=== PATIENT | female | born 1955 | race Caucasian/White ===

== ENCOUNTER → 2016-12-19 | Outpatient (CLI) | payer OTHER ==
[~2016-12-19] MED LIST: REGADENOSON 0.4 MG/5 ML SYR (LEXISCAN) IV ONE
[2016-12-19] MEDS: CATHETER FLUSH 10 ML SYR IV PRN ×2 (12:25→13:40)
[2016-12-19 13:38] VITALS: BP 127/64
--- NOTE | 2016-12-20 08:46 | STRESS TEST ---
DATE OF SERVICE: 12/19/2016 LEXISCAN MYOVIEW STRESS TEST REPORT REFERRING PHYSICIAN : Dr. Jeet Lentz. SUMMARY: The patient was injected with 10.94 mCi of technetium-99 Myoview and the resting images were obtained. Then, the patient received 0.4 mg of Lexiscan followed by 30.9 mCi of technetium-99 Myoview. Throughout the test, there were no EKG changes. The resting and stressed images were reviewed and compared in the short axis, horizontal long axis, and vertical long axis views. Review of the images showed good radiotracer uptake with typical female pattern. No significant ischemia or infarction. SSS is 1, SDS 1, TID value 1.06. On the gated images, the left ventricle appeared to be normal size with normal contractility. Calculated ejection fraction 65%. CONCLUSION: 1. The patient tolerated Lexiscan well. 2. No significant ischemia or infarction on SPECT images. 3. Normal left ventricular size with normal contractility. Calculated ejection fraction 65%. Job ID: [id number] DocumentID: [id number] Dictated Date: 12/19/2016 14:50:17 Barrel Bung Remover And Dumper Date: 12/19/2016 18:23:36 Dictated By: CHERRIE DE LA TORRE MD
== END ==
LOC: CARD 12:06
PROVIDERS: ATTEND Physician Assistant
DX: I44.2 Atrioventricular block, complete (principal); I10 Essential (primary) hypertension; C90.31 Solitary plasmacytoma in remission; E66.8 Other obesity; D47.2 Monoclonal gammopathy
CPT/HCPCS: 78452; 93017

== ENCOUNTER 2017-03-13 07:02 | Day surgery (SDC) | payer OTHER ==
[2017-03-13] VITALS (11 sets, daily range): BP systolic 103–151; BP diastolic 59–85
[~2017-03-13] VITALS: Ht 162.6 cm; Wt 85.3 kg
[~2017-03-13 07:02] MED LIST changes: +HEParin 1000 UNIT/ML (10ML VIAL) FOR BOLUS ONE; +NS (IVPB) 50 ML ONE; +NS IV 1000 ML 2,000 ML ONE; -REGADENOSON 0.4 MG/5 ML SYR (LEXISCAN) IV ONE; +ceFAZolin 1,000 MG (ANCEF) VIAL ONE
[2017-03-13] MEDS ORDERED: NS IV 1000 ML 1,000 ML IV ONE ×2 (07:04→08:04)
[2017-03-13] MEDS ORDERED: ceFAZolin 1,000 MG (ANCEF) VIAL IV ONE ×2 (07:15→08:15)
[2017-03-13] MEDS ORDERED: BACITRACIN INJECTION 50,000 UNIT, SODIUM CHLORIDE 0.9% IRRIGATIO 500 ML IR ONE ×4 (07:15→08:15)
[2017-03-13 07:28] LABS: MEAN PLATELET VOLUME 10.9 FL (7.4-10.4); RED BLOOD COUNT 4.1 10^6/uL (4.35-5.85); RED CELL DISTRIBUTION WIDTH 13.4 % (10.0-14.5); WHITE BLOOD COUNT 5.5 10^3/uL (4.3-11.0)
[2017-03-13 07:29] LABS: BILIRUBIN,URINE NEGATIVE (NEGATIVE); KETONES,URINE NEGATIVE (NEGATIVE); LEUKOCYTE ESTERASE ,URINE NEGATIVE (NEGATIVE); NITRITE,URINE NEGATIVE (NEGATIVE); PH,URINE 6.5 (5-9); PROTEIN,URINE NEGATIVE (NEGATIVE); UROBILINOGEN,URINE NORMAL (NORMAL)
[2017-03-13] MEDS ORDERED: LOSA1TAB70 PO (07:36)
[2017-03-13] MEDS ORDERED: ASPI-999 PO (07:36)
[2017-03-13] MEDS ORDERED: EZET10TA5 PO (07:36)
[2017-03-13 07:38] LABS: INR 0.9 (0.8-1.4); PROTHROMBIN TIME PATIENT 12.7 SEC (12.2-14.7)
--- NOTE | 2017-03-13 07:39 | Diagnostic Imaging Report ---
Indication: Preoperative evaluation Comparison: 10/13/2008 Findings: Upright portable view of the chest is obtained. Heart size is upper limits of normal unchanged. Pacer device is stable. There is no pneumothorax, mediastinal widening or pleural fluid. Lungs are clear. Impression: No evidence of an acute cardiopulmonary abnormality. Dictated by: Dictated on workstation # [id number]
[2017-03-13 07:47] LABS: ALANINE AMINOTRANSFERASE 37 U/L (0-55); ALBUMIN 4.2 GM/DL (3.2-4.5); ANION GAP 12 MMOL/L (5-14); ASPARTATE AMINO TRANSFERASE 35 U/L (5-34); BILIRUBIN,TOTAL 0.5 MG/DL (0.1-1.0); BLOOD UREA NITROGEN 12 MG/DL (7-18); BUN/CREATININE RATIO 14; CALCIUM 9.8 MG/DL (8.5-10.1); CARBON DIOXIDE 24 MMOL/L (21-32); CHLORIDE 104 MMOL/L (98-107); CHOLESTEROL 203 MG/DL (< 200); CREATININE SERUM 0.87 MG/DL (0.60-1.30); DIRECT LDL 108 MG/DL (1-129); GFR ESTIMATED > 60; GLUCOSE 132 MG/DL (70-105); POTASSIUM 3.4 MMOL/L (3.6-5.0); SODIUM 140 MMOL/L (135-145); TOTAL PROTEIN 7.2 GM/DL (6.4-8.2); TRIGLYCERIDES 151 MG/DL (<150); VLDL CHOLESTEROL 30 MG/DL (5-40)
[2017-03-13] MEDS ORDERED: MIDAZOLAM 5 MG/5 ML (VERSED) VIAL ONE (09:09)
[2017-03-13] MEDS ORDERED: fentaNYL INJECTION 100 MCG/2 ML AMP ONE (09:09)
--- NOTE | 2017-03-13 09:54 | Cardiac Procedure Note-CS/ASA ---
Pre-Procedure Note Pre-Op Procedure Note H&P Reviewed The H&P was reviewed, patient examined and no changes noted. Date H&P Reviewed: Mar 13, 2017 Time H&P Reviewed: 09:53 Conscious Sedation Pre-Proced Time Reviewed: 09:53 ASA Class: 3 Airway Mallampati Classification: (k[place] de[place] wint[place] appropriate class) I. II. III, IV Lungs Heart ASA score ASA 1: a normal healthy patient ASA 2: a patient with a mild systemic disease (mid diabetes, controlled hypertension, obesity x ASA 3: a patient with a severe systemic disease that limits activity (angina , COPD, prior Myocardial infarction) ASA 4: a patient with an incapacitating disease that is a constant threat to life (CHF, renal failure) ASA 5: a moribund patient not expected to survive 24 hrs. (ruptured aneurysm) ASA 6: a declared brain patient whose organs are being harvested. For emergent operations, add the letter E after the classification Grade 3 Sedation Plan: Analgesia, Amnesia, Plan communicated to team members, Discussed options with patient/fam, Discussed risks with patient/fam Note The patient is an appropriate candidate to undergo the planned procedure, sedation, and anesthesia. The patient immediately re-assessed prior to indication. CHERRIE DE LA TORRE MD Mar 13, 2017 09:54
[2017-03-13] MEDS ORDERED: NEO/POLY/BAC (NEOSPORIN) OINT 15 GM TUBE ONE (10:37)
[2017-03-13] MEDS ORDERED: NS IV 1000 ML 1,000 ML IV SCH (10:47)
[2017-03-13] MEDS ORDERED: CEFU500T63 PO (10:51)
--- NOTE | 2017-03-13 10:56 | ICD Generator Change ---
ICD Generator Change Physician (s)/Lime Sludge Kiln Operator (s) Physician CHERRIE DE LA TORRE MD Pre-Procedure Diagnosis Pre-Procedure Diagnosis: END OF BATTERY LIFE Post-Procedure Note Procedure Start Date: Mar 13, 2017 Procedure Start Time: 10:52 Name of Procedure: dual chamber pacemaker generator change Findings/Procedure Note After explaining the procedure to the patient all pros and cons were explained patient was placed on a Laboratory chest area was prepped in a sterile fashion. Local anesthesia applied and skin incision was made. The device was removed and patient is known to have a right ventricular lead that has a high impedance and high threshold. Patient is not requiring any pacing the ventricular lead. After removing the pacemaker generator and tested both leads the atrial lead has good sensing and capture activity, the ventricular lead has good sensing but high threshold for ventricular pacing. Due to the fact that patient does not require any pacing from the ventricular lead I decided to leave it and attached and new device with the longer battery duration. I used a Meldium device ADAPTA DR LONGEVITY with serial number [id number], it was placed in the pocket, tested again good sensing and capture activity. Skin pocket was closed on 2 layers with no complications. Irrigation with antibiotic solution was done. Conclusion Successful dual-chamber pacemaker generator replacement with no complications Anesthesia Type: Conscious Sedation Estimated blood loss (mL): 10 ml Contrast Amount: 0 ml Post-Procedure Diagnosis Post-operative diagnosis: sick sinus syndrome Hypertension Hyperlipidemia CHERRIE DE LA TORRE MD Mar 13, 2017 10:56
[2017-03-13] MEDS ORDERED: PATIENT MAY USE OWN MEDS, ALL PO SCH (11:00)
[2017-03-13] MEDS ORDERED: ceFAZolin INJECTION 1,000 MG in NS (IVPB) 50 ML IV SCH (14:00)
== END 2017-03-13 15:45 | disposition home or self-care (01) ==
LOC: CATH 07:02 → ICU 11:06 → CATH 15:45
PROVIDERS: ATTEND Internal Medicine Cardiovascular Disease
DX: Z45.010 Encounter for checking and testing of cardiac pacemaker pulse generator [battery] (principal); I10 Essential (primary) hypertension; E78.5 Hyperlipidemia, unspecified; I65.23 Occlusion and stenosis of bilateral carotid arteries; D47.2 Monoclonal gammopathy; C90.31 Solitary plasmacytoma in remission; E66.9 Obesity, unspecified; Z68.32 Body mass index [BMI] 32.0-32.9, adult; Z79.82 Long term (current) use of aspirin; Z92.3 Personal history of irradiation
CPT/HCPCS: 33228; 36415; 71010; 80053; 80061; 81000; 85027; 85610; 85730; 87081; 93005

== ENCOUNTER → 2017-04-30 | Outpatient (CLI) | payer OTHER ==
[~2017-04-30] MED LIST changes: +ASPI-999 PO; +CEFU500T63 PO; +EZET10TA5 PO; -HEParin 1000 UNIT/ML (10ML VIAL) FOR BOLUS ONE; +LOSA1TAB23 PO; -NS (IVPB) 50 ML ONE; -NS IV 1000 ML 2,000 ML ONE; -ceFAZolin 1,000 MG (ANCEF) VIAL ONE
--- NOTE | 2017-04-30 17:09 | Diagnostic Imaging Report ---
Bilateral screening mammogram 2D views with tomosynthesis The current study was also evaluated with a Computer Aided Detection (CAD) system. Indication: Screening. No current complaints stated on the questionnaire. COMPARISON: 04/27/2016. Findings: The breasts are composed of scattered fibroglandular densities. There are occasional benign-appearing calcifications. Pacemaker on the left side is seen. Allowing for technique and positional differences, no suspicious change is seen. IMPRESSION: No significant change. ACR BI-RADS Category 2: Benign findings. Result letter will be mailed to the patient. Note: At least 10% of breast cancer is not imaged by mammography. Dictated by: Dictated on workstation # [id number]
== END ==
LOC: RAD 10:12
PROVIDERS: ATTEND Family Medicine
DX: Z12.31 Encounter for screening mammogram for malignant neoplasm of breast (principal)
CPT/HCPCS: 77067

== ENCOUNTER → 2018-06-23 | Outpatient (CLI) | payer OTHER ==
--- NOTE | 2018-06-23 13:03 | Diagnostic Imaging Report ---
Indication: Routine screening. Comparison is made with prior mammogram from 04/30/2017 and 04/27/2016. 2-D and 3-D bilateral screening mammography was performed with CAD. Scattered fibroglandular densities are identified bilaterally. The parenchymal pattern is stable. No dominant mass or malignant-appearing microcalcifications are seen. Left axilla contains a pacemaker battery pack. Impression: BI-RADS category 2 No mammographic features suspicious for malignancy are identified. ACR BI-RADS Category 2: Benign findings. Result letter will be mailed to the patient. Note: At least 10% of breast cancer is not imaged by mammography. Dictated by: Dictated on workstation # [id number]
== END ==
LOC: RAD 10:40
PROVIDERS: ATTEND Family Medicine
DX: Z12.31 Encounter for screening mammogram for malignant neoplasm of breast (principal)
CPT/HCPCS: 77067

== ENCOUNTER → 2019-04-06 | Outpatient (CLI) | payer OTHER | LOC: CARD 10:08 | PROVIDERS: ATTEND Internal Medicine Cardiovascular Disease | DX: Z53.9 Procedure and treatment not carried out, unspecified reason (principal); I44.2 Atrioventricular block, complete; I65.29 Occlusion and stenosis of unspecified carotid artery; I10 Essential (primary) hypertension; E78.2 Mixed hyperlipidemia; I49.1 Atrial premature depolarization | CPT/HCPCS: 93306 ==

== ENCOUNTER 2019-06-23 10:00 | Outpatient (CLI) | payer OTHER ==
[~2019-06-23] VITALS: Ht 162.6 cm; Wt 84.5 kg
[~2019-06-23 10:00] MED LIST changes: +EZET10TA17 PO; -EZET10TA5 PO; +METF-397 PO
== END 2019-06-23 10:35 | disposition home or self-care (01) ==
LOC: PREOP 10:00
PROVIDERS: ATTEND Internal Medicine
DX: Z01.818 Encounter for other preprocedural examination (principal)

== ENCOUNTER 2019-06-26 07:12 | Day surgery (SDC) | payer OTHER ==
--- NOTE | 2019-06-15 08:18 | HISTORY AND PHYSICAL ---
DATE OF SERVICE: COLONOSCOPY HISTORY AND PHYSICAL HISTORY OF PRESENT ILLNESS: The patient is a 63-year-old white female referred by Dr. Lentz for screening colonoscopy. She had one other colonoscopy per Dr. Shah in [place] in 2008 that was reportedly unremarkable. She is not aware of any family history of colon cancer. She reports no bowel habit change. Denies abdominal pain, bright red blood per rectum or melena. PAST MEDICAL HISTORY: Significant for hypertension and recently diagnosed type 2 diabetes mellitus in 03/2009, at which time, metformin 500 mg b.i.d. was initiated. She takes a baby aspirin daily and is on losartan-hydrochlorothiazide 100/25 mg 1 daily. 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 In 2004, she had 5 weeks of radiation therapy and has had no recurrence. She also had a past history of pacemaker placement for complete heart block in 1999, negative workup felt to be idiopathic. FAMILY HISTORY: Maternal grandmother was diagnosed with breast cancer that metastasized to the bone postmenopausal. Father at age 51 secondary to an NC. Mother at the age of 96, had a history of COPD and hyperlipidemia. SOCIAL HISTORY: She is , works as a part-time nurse with no past smoking history and no significant drinking history. REVIEW OF SYSTEMS: CONSTITUTIONAL: She denies night sweats, chills, fever or change in weight. CARDIOVASCULAR: She denies chest pain, orthopnea, PND, pedal edema or dyspnea on exertion. PULMONARY: She denies cough or wheezing problems. GASTROINTESTINAL: As noted in the HPI. PHYSICAL EXAMINATION: GENERAL: Reveals a pleasant white female in no acute distress. VITAL SIGNS: Weight 186.6 pounds, blood pressure 121/71. HEENT: Unremarkable. Oral cavity clear. Mallampati 1 oral configuration. NECK: Revealed no JVD, adenopathy or bruits. CHEST: Clear to auscultation. CARDIOVASCULAR: Reveals a regular rate and rhythm without murmur, S3 or S4. ABDOMEN: Soft, supple without mass, organomegaly or tenderness. EXTREMITIES: Reveal no cyanosis, clubbing or edema. ASSESSMENT AND PLAN: The patient is set up for screening colonoscopy on 06/26/2019. Prep instructions with the Suprep kit were given and questions were answered. I thank you for the referral of this pleasant lady. Job ID: [id number] DocumentID: [id number] Dictated Date: 06/10/2019 17:13:35 Survey Instrument Operator Date: 06/10/2019 17:40:02 Dictated By: WARREN MILIAN MD
[~2019-06-26] VITALS: Ht 162.6 cm; Wt 84.5 kg
[2019-06-26] VITALS (12 sets, daily range): BP systolic 104–156; BP diastolic 56–85
[~2019-06-26 07:12] MED LIST changes: +D5 LR IV SOLUTION 1,000 ML IV ONE
[2019-06-26] MEDS ORDERED: D5 LR IV SOLUTION 1,000 ML IV STA (07:14)
[2019-06-26] MEDS ORDERED: MIDAZOLAM 5 MG/5 ML (VERSED) VIAL IV PRN (07:15)
[2019-06-26] MEDS ORDERED: fentaNYL INJECTION 100 MCG/2 ML AMP IVP ONE (07:15)
[2019-06-26] MEDS ORDERED: LIDOCAINE JELLY 2% 6 ML SYRINGE MM PRN (07:15)
[2019-06-26] MEDS ORDERED: LIDOCAINE JELLY 2% 6 ML SYRINGE ONE (07:58)
[2019-06-26] MEDS ORDERED: fentaNYL INJECTION 100 MCG/2 ML AMP ONE (07:58)
[2019-06-26] MEDS ORDERED: MIDAZOLAM 5 MG/5 ML (VERSED) VIAL ONE (07:59)
--- NOTE | 2019-06-26 09:49 | Pre-Op Note & Conscious Sedat ---
Pre-Operative Progress Note H&P Reviewed The H&P was reviewed, patient examined and no changes noted. Date H&P Reviewed: Jun 26, 2019 Time H&P Reviewed: 07:40 Conscious Sedation Pre-Proced ASA Score 2 For ASA 3 and 4: Consider anesthesia and medical clearance. Also, for patients with a history of failed moderate sedation consider anesthesia. Airway Lungs Heart ASA score ASA 1: a normal healthy patient ASA 2: a patient with a mild systemic disease (mid diabetes, controlled hypertension, obesity ASA 3: a patient with a severe systemic disease that limits activity (angina, COPD, prior Myocardial infarction) ASA 4: a patient with an incapacitating disease that is a constant threat to life (CHF, renal failure) ASA 5: a moribund patient not expected to survive 24 hrs. (ruptured aneurysm) ASA 6: a declared brain- patient whose organs are being harvested. For emergent operations, add the letter E after the classification Mallampati Classification Grade 2 Sedation Plan Analgesia, Amnesia, Plan communicated to team members, Discussed options with patient/fam, Discussed risks with patient/fam The patient is an appropriate candidate to undergo the planned procedure, sedation, and anesthesia. The patient immediately re-assessed prior to indication. WARREN MILIAN MD Jun 26, 2019 09:49
--- NOTE | 2019-06-26 16:21 | OPERATIVE REPORT ---
DATE OF SERVICE: COLONOSCOPY SUMMARY The patient was referred by Dr. Lentz for screening colonoscopy. DESCRIPTION OF PROCEDURE: The patient was placed in the left lateral decubitus position. Prior to undergoing colonoscopy, digital rectal evaluation was performed. Anal sphincter tone was normal. Perianal reflexes intact. There is some redundant perianal skin folds, likely secondary to a previous related hemorrhoids, but no evidence for active external hemorrhoids were noted. No significant internal hemorrhoids were noted. No abnormalities were noted on digital inspection of anal canal or distal rectal vault. The colonoscope was then inserted into the rectum and under direct visualization advanced to cecum. The cecum was identified by identification of the ileocecal valve and cecal strap. Photographic documentation was obtained. Careful inspection was made as colonoscope withdrawn. Quality of prep was excellent. The patient tolerated the procedure well. FINDINGS: There was no evidence for internal or external hemorrhoids and the rectum was unremarkable. Two very small sigmoid diverticulum were present. No evidence for diverticulitis was noted. No other sigmoid colonic abnormalities were appreciated. The descending colon, splenic flexure, transverse colon and hepatic flexure were unremarkable. Present in the proximal ascending colon was a diminutive polyp, was biopsied and ablated with no subsequent blood loss and measured 2 to 3 mm in size. The remainder of the ascending colon and cecum was unremarkable. ASSESSMENT: Diminutive hyperplastic appearing polyp was removed from the proximal ascending colon. No other evidence for neoplasia was identified. Two small sigmoid diverticulum were present. No evidence for diverticulitis. No other significant abnormalities were noted on today's procedure. I would advocate consideration for repeat screening colonoscopy in 10 years. Job ID: [id number] DocumentID: [id number] Dictated Date: 06/26/2019 10:03:18 Rotary Driller Prospecting Date: 06/26/2019 16:20:32 Dictated By: WARREN MILIAN MD
== END 2019-06-26 09:55 | disposition home or self-care (01) ==
LOC: ENDO 07:12
PROVIDERS: ATTEND Internal Medicine
DX: Z12.11 Encounter for screening for malignant neoplasm of colon (principal); K63.5 Polyp of colon; K57.30 Diverticulosis of large intestine without perforation or abscess without bleeding; E11.9 Type 2 diabetes mellitus without complications; I10 Essential (primary) hypertension; Z79.84 Long term (current) use of oral hypoglycemic drugs; Z79.82 Long term (current) use of aspirin; Z79.899 Other long term (current) drug therapy; Z95.0 Presence of cardiac pacemaker; Z80.3 Family history of malignant neoplasm of breast

== ENCOUNTER → 2019-09-14 | Outpatient (CLI) | payer OTHER ==
[~2019-09-14] MED LIST changes: -D5 LR IV SOLUTION 1,000 ML IV ONE
--- NOTE | 2019-09-15 21:03 | Diagnostic Imaging Report ---
EXAM: Digital mammogram bilateral screening COMPARISON: This study was compared to the prior exams of 06/23/2018, 04/30/2017 and 04/27/2016. There are no current complaints. The current study was also evaluated with a Computer Aided Detection (CAD) system. FINDINGS: The fibroglandular tissue in both breasts is heterogeneously dense. This does limit the sensitivity of this exam. Overall, there does not appear to have been any significant change when compared to the prior study. No primary or secondary sign of malignancy is noted. The left-sided pacemaker seen previously is again evident. IMPRESSION: There is no radiographic evidence for malignancy. ACR category 1. ACR BI-RADS Category 1: Negative. Result letter will be mailed to the patient. Note: At least 10% of breast cancer is not imaged by mammography. Dictated on workstation # [id number]
== END ==
LOC: RAD 10:54
PROVIDERS: ATTEND Family Medicine
DX: Z12.31 Encounter for screening mammogram for malignant neoplasm of breast (principal)
CPT/HCPCS: 77063; 77067

== ENCOUNTER → 2020-07-11 | Outpatient (CLI) | payer OTHER | LOC: CARD 09:51 | PROVIDERS: ATTEND Physician Assistant | DX: I49.5 Sick sinus syndrome (principal); I51.7 Cardiomegaly; I34.0 Nonrheumatic mitral (valve) insufficiency | CPT/HCPCS: 93306 ==

== ENCOUNTER → 2020-09-15 | Outpatient (CLI) | payer OTHER ==
--- NOTE | 2020-09-15 10:36 | Diagnostic Imaging Report ---
INDICATION: Routine screening. Comparison is made to prior mammogram 09/14/2019. 2-D and 3-D bilateral screening mammography was performed with CAD. Both breasts remain heterogeneously dense, limiting the sensitivity of mammography. The parenchymal pattern is stable. No mass or malignant appearing microcalcifications are identified. There is pacemaker battery pack left axilla. Right axilla is unremarkable. IMPRESSION: BI-RADS Category 1 No mammographic features suspicious for malignancy are identified. ACR BI-RADS Category 1: Negative. Result letter will be mailed to the patient. Note: At least 10% of breast cancer is not imaged by mammography. Dictated by: Dictated on workstation # [id number]
== END ==
LOC: RAD 10:05
PROVIDERS: ATTEND Family Medicine
DX: Z12.31 Encounter for screening mammogram for malignant neoplasm of breast (principal)
CPT/HCPCS: 77063; 77067

== ENCOUNTER → 2021-08-15 | Outpatient (CLI) | payer MEDICARE, OTHER | LOC: CARD 10:30 | PROVIDERS: ATTEND Physician Assistant | DX: I10 Essential (primary) hypertension (principal) | CPT/HCPCS: 93306 ==

== ENCOUNTER → 2021-10-02 | Outpatient (CLI) | payer MEDICARE, OTHER ==
--- NOTE | 2021-10-02 15:58 | Diagnostic Imaging Report ---
INDICATION: Routine screening. Comparison is made with prior mammogram from 09/15/2020. 2-D and 3-D bilateral screening mammography was performed with CAD. Both breasts are heterogeneously dense, limiting the sensitivity of mammography. The parenchymal pattern is stable. No dominant mass or malignant-appearing microcalcifications are seen. There are benign calcifications present. Pacemaker battery pack is again noted in the left axilla. IMPRESSION: No mammographic features suspicious for malignancy are identified. ACR BI-RADS Category 2: Benign findings. Result letter will be mailed to the patient. Note: At least 10% of breast cancer is not imaged by mammography. BI-RADS Category 2 Dictated by: Dictated on workstation # [id number]
== END ==
LOC: RAD 10:30
PROVIDERS: ATTEND Family Medicine
DX: Z12.31 Encounter for screening mammogram for malignant neoplasm of breast (principal)
CPT/HCPCS: 77063; 77067

== ENCOUNTER → 2021-10-18 | Outpatient (CLI) | payer MEDICARE, OTHER ==
[~2021-10-18] VITALS: Ht 162 cm; Wt 81.0 kg
[~2021-10-18] MED LIST changes: +REGADENOSON 0.4 MG/5 ML SYR (LEXISCAN) IV ONE
[2021-10-18] MEDS: CATHETER FLUSH 10 ML SYR IVP PRN ×2 (08:16→09:46)
[2021-10-18 09:35] VITALS: BP 172/87
--- NOTE | 2021-10-18 14:18 | Cardiology Stress Test Report ---
Stress Test Report Date of Procedure/Referring: Date of Procedure: Oct 18, 2021 PCP Jeet Lentz DO Admitting Physician Admitting Physician: Attending Physician: Merlyn Santamaria Indications: HTN Baseline Heart Rate: 82 Baseline Blood Pressure: Blood Pressure Systolic: 172 Blood Pressure Diastolic: 87 Baseline Vitals Vital Signs Date Time Temp Pulse Resp B/P (MAP) Pulse Ox O2 Delivery O2 Flow Rate FiO2 10/18/21 09:35 78 172/87 (115) 96 Baseline EKG: Baseline EKG: RBBB Summary After explaining the procedure to the patient, she signed a consent and then brought to the stress nuclear laboratory. Patient received 0.4 mg Lexiscan for stress test, ECG, heart rate and blood pressure were monitored continuously. Resting and stress dose of radio tracer were injected, imaging was acquired and reviewed in short axis, horizontal long axis and vertical long axis views. TID: 1.04 SSS: 4 SDS: 3 EF: 72 1. Patient tolerated Lexiscan well 2. Baseline sinus rhythm with right bundle branch block, frequent PVCs and transient ventricular bigeminy noted during test 3. Baseline hypertension persisted during test 4. No significant ischemia or infarction on SPECT images 5. Normal left ventricular size, ejection fraction 72% Copy Copies To 1: JEET LENTZ BASHAR J MD Oct 18, 2021 14:17
== END ==
LOC: CARD 08:30
PROVIDERS: ATTEND Physician Assistant
DX: E78.2 Mixed hyperlipidemia (principal); I10 Essential (primary) hypertension
CPT/HCPCS: 78452; 93017; A9502

== ENCOUNTER → 2022-10-09 | Outpatient (CLI) | payer MEDICARE, OTHER ==
[~2022-10-09] MED LIST changes: -REGADENOSON 0.4 MG/5 ML SYR (LEXISCAN) IV ONE
--- NOTE | 2022-10-10 10:20 | Diagnostic Imaging Report ---
INDICATION: Routine screening. COMPARISON: 10/02/2021 and 09/15/2020. TECHNIQUE: 2D and 3D bilateral screening mammography was performed with CAD. FINDINGS: Both breasts are heterogeneously dense, limiting the sensitivity of mammography. The overall parenchymal pattern is stable. No mass or malignant-appearing microcalcifications are seen. There are scattered benign calcifications. A pacemaker battery pack overlies the left axilla. IMPRESSION: No mammographic features suspicious for malignancy are identified. ACR BI-RADS Category 2: Benign findings. Result letter will be mailed to the patient. Note: At least 10% of breast cancer is not imaged by mammography. Dictated by: Dictated on workstation # [id number]
== END ==
LOC: RAD 10:46
PROVIDERS: ATTEND Internal Medicine
DX: Z12.31 Encounter for screening mammogram for malignant neoplasm of breast (principal)
CPT/HCPCS: 77063; 77067